=== PATIENT | female | born 1955 | race Caucasian/White ===

== ENCOUNTER → 2017-04-23 | Outpatient (CLI) | payer BC ==
[2017-04-23 07:38] LABS: MEAN CORPUSCULAR HEMOGLOBIN 27.4 pg (27.0-33.0); MEAN CORPUSCULAR HGB CONC 32.6 g/dl (32.0-36.5); MEAN CORPUSCULAR VOLUME 83.9 fl (80.0-96.0); RED CELL DISTRIBUTION WIDTH 14.6 % (11.5-14.5); RETIC HEMOGLOBIN CONTENT CHr 29.9 PG (24-36); RETICULOCYTE % 1.8 % (0.5-1.5); WHITE BLOOD COUNT 2.9 K/mm3 (4.0-10.0)
[2017-04-23 07:53] LABS: ALBUMIN 3.2 GM/DL (3.2-5.2); ALBUMIN/GLOBULIN RATIO 1.03 (1.00-1.93); ALKALINE PHOSPHATASE 71 U/L (45-117); ALT/SGPT 36 U/L (12-78); ANION GAP 8 MEQ/L (8-16); AST/SGOT 38 U/L (15-37); BILIRUBIN,TOTAL 0.4 MG/DL (0.2-1.0); BLOOD UREA NITROGEN 9 MG/DL (7-18); CALCIUM LEVEL 8.6 MG/DL (8.8-10.2); CARBON DIOXIDE LEVEL 28 MEQ/L (21-32); CHLORIDE LEVEL 108 MEQ/L (98-107); CHOLESTEROL LEVEL 166 MG/DL (<200); CREATININE FOR GFR 0.67 MG/DL (0.55-1.02); FERRITIN 8 NG/ML (8-252); GLOMERULAR FILTRATION RATE > 60.0 (>45); GLUCOSE, FASTING 82 MG/DL (80-110); PERCENT SATURATION 8.7 % (13.2-45.0); POTASSIUM SERUM 4.2 MEQ/L (3.5-5.1); SODIUM LEVEL 144 MEQ/L (136-145); TOTAL IRON BINDING CAPACITY 415 UG/DL (250-450); TOTAL PROTEIN 6.3 GM/DL (6.4-8.2); TRIGLYCERIDES LEVEL 74 MG/DL (<150)
[2017-04-23 09:35] LABS: FOLATE 19.5 NG/ML (>5.4); VITAMIN B12 LEVEL 293 PG/ML (247-911)
== END ==
LOC: M LAB 06:42
PROVIDERS: ATTEND Nurse Practitioner Family
DX: K52.9 Noninfective gastroenteritis and colitis, unspecified (principal); E03.9 Hypothyroidism, unspecified; D50.9 Iron deficiency anemia, unspecified; I10 Essential (primary) hypertension

== ENCOUNTER 2017-05-08 15:53 | Outpatient (RCR) | payer BC | END 2017-05-11 | LOC: M PT 15:53 | PROVIDERS: ATTEND Physician Assistant Surgical | DX: Z51.89 Encounter for other specified aftercare (principal); M22.2X2 Patellofemoral disorders, left knee; M22.2X1 Patellofemoral disorders, right knee ==

== ENCOUNTER → 2017-05-23 | Outpatient (REF) | payer BC | LOC: M LAB REF 12:23 | PROVIDERS: ATTEND Internal Medicine Medical Oncology | DX: C21.0 Malignant neoplasm of anus, unspecified (principal) ==

== ENCOUNTER → 2017-07-30 | Day surgery (SDC) | payer BC ==
[~2017-07-30] VITALS: Ht 165.1 cm; Wt 107.5 kg
[~2017-07-30] MED LIST: IRON65TA PO; LEVO112T2; LR 1,000 ML IV ONE; MELO7.5T7 PO; VITA1CAP40; VITA500T PO; ZYRT10TA2 PO
--- NOTE | 2017-07-30 10:06 | ROOR ---
Patient Name: Anca Cates Procedure Date: 07/30/2017 9:24 AM Date of : 1955 Age: 62 Room: [facility] Gender: Female Note Status: Finalized Procedure: Colonoscopy Indications: High risk colon cancer surveillance: Personal history of colonic polyps, High risk colon cancer surveillance: Personal history of anal cancer, Last colonoscopy: September 2014 Providers: Esa Gillis MD Referring MD: WALE MCDANIEL MD Requesting Provider: Medicines: Monitored Anesthesia Care Complications: No immediate complications. Procedure: Pre-Anesthesia Assessment: - Prior to the procedure, a History and Physical was performed, and patient medications and allergies were reviewed. The patient is competent. The risks and benefits of the procedure and the sedation options and risks were discussed with the patient. All questions were answered and informed consent was obtained. Patient identification and proposed procedure were verified by the physician, the nurse and the special needs babysitter in the procedure room. Mental Status Examination: alert and oriented. Airway Examination: normal oropharyngeal airway and neck mobility. CV Examination: regular rate and rhythm. Prophylactic Antibiotics: The patient does not require prophylactic antibiotics. Prior Anticoagulants: The patient has taken no previous anticoagulant or antiplatelet agents. ASA Grade Assessment: III - A patient with severe systemic disease. After reviewing the risks and benefits, the patient was deemed in satisfactory condition to undergo the procedure. The anesthesia plan was to use monitored anesthesia care (MAC). Immediately prior to administration of medications, the patient was re-assessed for adequacy to receive sedatives. The heart rate, respiratory rate, oxygen saturations, blood pressure, adequacy of pulmonary ventilation, and response to care were monitored throughout the procedure. The physical status of the patient was re-assessed after the procedure. The was introduced through the anus and advanced to the cecum, identified by appendiceal orifice and ileocecal valve. The colonoscopy was performed without difficulty. The patient tolerated the procedure well. The quality of the bowel preparation was good. Findings: The digital rectal exam findings include anal stricture which is mild. Pertinent negatives include no palpable rectal lesions. A 5 mm polyp was found in the hepatic flexure. The polyp was sessile. The polyp was removed with a cold snare. Resection and retrieval were complete. Estimated blood loss was minimal. An area of moderately congested mucosa was found in the rectum. This involved the rectum diffusely. Impression: - Anal stricture found on digital rectal exam. - One 5 mm polyp at the hepatic flexure, removed with a cold snare. Resected and retrieved. - Congested mucosa in the rectum. Recommendation: - Discharge patient to home. - Resume previous diet. - Continue present medications. - Await pathology results. - Telephone endoscopist for pathology results in 1 week. - Repeat colonoscopy in 3 years for surveillance. Esa Gillis MD 07/30/2017 10:06:18 AM Number of Addenda: 0 Note Initiated On: 07/30/2017 9:24 AM Estimated Blood Loss: Estimated blood loss was minimal.
[2017-07-30 10:25] VITALS: BP 172/75
== END | disposition home or self-care (01) ==
LOC: M OPP 08:01
PROVIDERS: ATTEND Surgery
DX: Z12.11 Encounter for screening for malignant neoplasm of colon (principal); Z85.048 Personal history of other malignant neoplasm of rectum, rectosigmoid junction, and anus; Z86.010 Personal history of colon polyps; D12.3 Benign neoplasm of transverse colon; K62.89 Other specified diseases of anus and rectum; K62.4 Stenosis of anus and rectum; E03.9 Hypothyroidism, unspecified; D64.9 Anemia, unspecified; G43.909 Migraine, unspecified, not intractable, without status migrainosus; Z78.0 Asymptomatic menopausal state; E66.9 Obesity, unspecified; Z92.3 Personal history of irradiation; Z92.21 Personal history of antineoplastic chemotherapy; Z98.84 Bariatric surgery status; Z79.899 Other long term (current) drug therapy; Z88.8 Allergy status to other drugs, medicaments and biological substances

== ENCOUNTER → 2017-10-09 | Outpatient (CLI) | payer BC | LOC: M RAD 11:06 | DX: R10.9 Unspecified abdominal pain (principal) | CPT/HCPCS: 74181 ==

== ENCOUNTER → 2017-10-17 | Outpatient (CLI) | payer BC | LOC: M RAD 11:34 | DX: G44.89 Other headache syndrome (principal) ==

== ENCOUNTER → 2018-02-13 | Outpatient (CLI) | payer BC ==
[2018-02-13 07:25] LABS: HEMATOCRIT 39.3 % (36.0-47.0); HEMOGLOBIN 13.4 g/dl (12.0-15.5); MEAN CORPUSCULAR HEMOGLOBIN 30.2 pg (27.0-33.0); MEAN CORPUSCULAR HGB CONC 34.1 g/dl (32.0-36.5); MEAN CORPUSCULAR VOLUME 88.5 fl (80.0-96.0); PLATELET COUNT, AUTOMATED 257 10^3/uL (150-450); RED BLOOD COUNT 4.44 10^6/uL (4.00-5.40); RED CELL DISTRIBUTION WIDTH 12.8 % (11.5-14.5); RETICULOCYTE # 52.4 10^9/L (17-77); RETICULOCYTE % 1.2 % (0.5-1.5); WHITE BLOOD COUNT 3.9 10^3/uL (4.0-10.0)
[2018-02-13 07:59] LABS: ALBUMIN 3.3 GM/DL (3.2-5.2); ALBUMIN/GLOBULIN RATIO 0.94 (1.00-1.93); ALKALINE PHOSPHATASE 73 U/L (45-117); ALT/SGPT 30 U/L (12-78); ANION GAP 9 MEQ/L (8-16); AST/SGOT 22 U/L (7-37); BILIRUBIN,TOTAL 0.4 MG/DL (0.2-1.0); BLOOD UREA NITROGEN 15 MG/DL (7-18); CALCIUM LEVEL 8.2 MG/DL (8.8-10.2); CARBON DIOXIDE LEVEL 27 MEQ/L (21-32); CHLORIDE LEVEL 107 MEQ/L (98-107); CREATININE FOR GFR 0.66 MG/DL (0.55-1.30); FERRITIN 22 NG/ML (8-252); GLOMERULAR FILTRATION RATE > 60.0 (>45); GLUCOSE, FASTING 82 MG/DL (70-100); IRON (FE) 74 UG/DL (50-170); PERCENT SATURATION 19.5 % (13.2-45.0); POTASSIUM SERUM 4.1 MEQ/L (3.5-5.1); SODIUM LEVEL 143 MEQ/L (136-145); TOTAL IRON BINDING CAPACITY 379 UG/DL (250-450); TOTAL PROTEIN 6.8 GM/DL (6.4-8.2)
[2018-02-13 10:11] LABS: TOTAL 25(OH) VITAMIN D 106.2 NG/ML (30.0-100.0); VITAMIN B12 LEVEL > 2000 PG/ML
[2018-02-13 10:13] LABS: FOLATE 15.6 NG/ML
== END ==
LOC: M LAB 06:56
DX: E03.9 Hypothyroidism, unspecified (principal)
CPT/HCPCS: 82746

== ENCOUNTER → 2018-02-18 | Outpatient (CLI) | payer BC | LOC: M RAD 06:35 | DX: G45.9 Transient cerebral ischemic attack, unspecified (principal) | CPT/HCPCS: 70551 ==

== ENCOUNTER 2020-03-10 07:15 | Day surgery (SDC) | payer MEDICARE ==
[~2020-03-10] VITALS: Ht 165.1 cm; Wt 102.1 kg
[~2020-03-10 07:15] MED LIST changes: +ALLE10TA62 PO; +IRON325T2 PO; +LIDOCAINE 2% 100MG/5ML SDV (FOR ANES.) As Ordered ONE; -LR 1,000 ML IV ONE; +POTA10808 PO; +VITA-243 PO; -VITA1CAP40; +VITA50005; +VITA500C24 PO; -VITA500T PO; +ZYRT10CA5 PO; -ZYRT10TA2 PO; +propofoL 200 MG/20 ML VIAL As Ordered ONE
[2020-03-10] MEDS ORDERED: fentaNYL 100 MCG/2 ML INJECTION (J3010) As Ordered ONE (07:47)
[2020-03-10] MEDS ORDERED: propofoL 200 MG/20 ML VIAL As Ordered ONE (09:04)
--- NOTE | 2020-04-20 11:26 | ROOR ---
Patient Name: Anca Cates Procedure Date: 03/10/2020 8:33 AM Date of : 1955 Age: 64 Room: [facility] Gender: Female Note Status: Spine Nurse Override Procedure: Colonoscopy Indications: Last colonoscopy: July 2017, Iron deficiency anemia, Past treatment for anal cancer. Providers: Esa Gillis MD Referring MD: Annabella YEUNG DO Requesting Provider: Medicines: Monitored Anesthesia Care Complications: No immediate complications. Procedure: Pre-Anesthesia Assessment: - Prior to the procedure, a History and Physical was performed, and patient medications and allergies were reviewed. The patient is competent. The risks and benefits of the procedure and the sedation options and risks were discussed with the patient. All questions were answered and informed consent was obtained. Patient identification and proposed procedure were verified by the physician, the nurse and the anesthesiologist in the procedure room. Mental Status Examination: alert and oriented. Prophylactic Antibiotics: The patient does not require prophylactic antibiotics. Prior Anticoagulants: The patient has taken no previous anticoagulant or antiplatelet agents. ASA Grade Assessment: II - A patient with mild systemic disease. After reviewing the risks and benefits, the patient was deemed in satisfactory condition to undergo the procedure. The anesthesia plan was to use monitored anesthesia care (MAC). Immediately prior to administration of medications, the patient was re-assessed for adequacy to receive sedatives. The heart rate, respiratory rate, oxygen saturations, blood pressure, adequacy of pulmonary ventilation, and response to care were monitored throughout the procedure. The physical status of the patient was re-assessed after the procedure. The Colonoscope was introduced through the anus and advanced to the cecum, identified by appendiceal orifice and ileocecal valve. The colonoscopy was performed without difficulty. The patient tolerated the procedure well. The quality of the bowel preparation was good. Findings: The perianal exam findings include changes consistent with prior anal cancer. Five sessile polyps were found in the proximal transverse colon, hepatic flexure and ascending colon. The polyps were 3 to 5 mm in size. These polyps were removed with a cold snare. Resection and retrieval were complete. Estimated blood loss was minimal. Two sessile polyps were found in the splenic flexure and transverse colon. The polyps were diminutive in size. Multiple medium-mouthed diverticula were found in the sigmoid colon. A diffuse area of moderately congested, erythematous and muiuaaxd-yqktvol-wtfkcvqap mucosa was found in the rectum. This was consistent with patient's prior radiation therapy. Impression: - Changes consistent with prior anal cancer. found on perianal exam. - Five 3 to 5 mm polyps in the proximal transverse colon, at the hepatic flexure and in the ascending colon, removed with a cold snare. Resected and retrieved. - Two diminutive polyps at the splenic flexure and in the transverse colon. - Diverticulosis in the sigmoid colon. - Congested, erythematous and vfadypib-vpysaaa-hpznmlsnd mucosa in the rectum. Recommendation: - Discharge patient to home. - Resume previous diet. - Continue present medications. - Await pathology results. Esa Gillis MD Esa Gillis MD 03/10/2020 9:43:36 AM Number of Addenda: 0 Note Initiated On: 03/10/2020 8:33 AM Estimated Blood Loss: Estimated blood loss was minimal.
--- NOTE | 2020-04-20 11:26 | ROOR ---
Patient Name: Anca Cates Procedure Date: 03/10/2020 8:32 AM Date of : 1955 Age: 64 Room: [facility] Gender: Female Note Status: Prepper Override Procedure: Upper GI endoscopy Indications: Iron deficiency anemia, Status post gastric bypass Providers: Esa Gillis MD Referring MD: WALE MCDANIEL MD Requesting Provider: Medicines: Monitored Anesthesia Care Complications: No immediate complications. Procedure: Pre-Anesthesia Assessment: - Prior to the procedure, a History and Physical was performed, and patient medications and allergies were reviewed. The patient is competent. The risks and benefits of the procedure and the sedation options and risks were discussed with the patient. All questions were answered and informed consent was obtained. Patient identification and proposed procedure were verified by the physician, the nurse and the anesthesiologist in the procedure room. Mental Status Examination: alert and oriented. Prophylactic Antibiotics: The patient does not require prophylactic antibiotics. Prior Anticoagulants: The patient has taken no previous anticoagulant or antiplatelet agents. ASA Grade Assessment: II - A patient with mild systemic disease. After reviewing the risks and benefits, the patient was deemed in satisfactory condition to undergo the procedure. The anesthesia plan was to use monitored anesthesia care (MAC). Immediately prior to administration of medications, the patient was re-assessed for adequacy to receive sedatives. The heart rate, respiratory rate, oxygen saturations, blood pressure, adequacy of pulmonary ventilation, and response to care were monitored throughout the procedure. The physical status of the patient was re-assessed after the procedure. The Endoscope was introduced through the mouth, and advanced to the afferent and efferent jejunal loops. The upper GI endoscopy was accomplished without difficulty. The patient tolerated the procedure well. Findings: The examined esophagus was normal. Evidence of a gastric bypass was found. A gastric pouch was found. The gastrojejunal anastomosis was characterized by healthy appearing mucosa. This was traversed. The wyzjw-qi-dqblixy limb was characterized by healthy appearing mucosa. The dwdzqipr-qo-knperef limb was not examined as it could not be reached. Afferent limb was approx 15 cm and appeared healthy. Normal mucosa was found in the jejunum. Impression: - Normal esophagus. - Gastric bypass. Gastrojejunal anastomosis characterized by healthy appearing mucosa. - Normal mucosa was found in the jejunum. - No specimens collected. Recommendation: - Discharge patient to home. - Resume previous diet. - Continue present medications. Esa Gillis MD Esa Gillis MD 03/10/2020 9:54:02 AM Number of Addenda: 0 Note Initiated On: 03/10/2020 8:32 AM Estimated Blood Loss: Estimated blood loss: none.
== END 2020-03-10 10:15 | disposition home or self-care (01) ==
LOC: M OPP 07:15
PROVIDERS: ATTEND Surgery
DX: K63.5 Polyp of colon (principal); K62.89 Other specified diseases of anus and rectum; K57.30 Diverticulosis of large intestine without perforation or abscess without bleeding; D50.9 Iron deficiency anemia, unspecified; Z98.84 Bariatric surgery status; Z79.899 Other long term (current) drug therapy; Z85.048 Personal history of other malignant neoplasm of rectum, rectosigmoid junction, and anus
CPT/HCPCS: 43235; 45385; 88305; J3010

== ENCOUNTER → 2020-05-19 | Outpatient (CLI) | payer MEDICARE ==
[~2020-05-19] MED LIST changes: +GASTROGRAFIN SOLUTION 30ML (Q9963) As Ordered ONE; +ISOVUE-370 76% 100ML VIAL As Ordered ONE; -LIDOCAINE 2% 100MG/5ML SDV (FOR ANES.) As Ordered ONE; -propofoL 200 MG/20 ML VIAL As Ordered ONE
--- NOTE | 2020-05-24 10:08 | REP ---
CT STUDY OF THE ABDOMEN AND PELVIS WITH INTRAVENOUS (IV) AND ORAL CONTRAST HISTORY: Lower abdominal pain. 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 COMPARISON CT STUDY: 06/25/2014. COMPARISON ABDOMINAL MRI STUDY: 10/09/2017. CT CONTRAST DOSE: 100 mL of intravenous Isovue-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 There is a moderate amount of stool in the right and left colon. There are surgical clips in the left mid abdomen. Lung bases shows granulomatous calcifications in the left base, but are otherwise clear. No pleural effusion or upper abdominal ascites. The gallbladder is surgically absent and the patient is status post gastric bypass. There is minimal diffuse fatty infiltration of the liver. No focal liver lesion is seen. The spleen is normal in size and homogeneous in texture. There is a tiny accessory splenule inferiorly. The kidneys enhance symmetrically and are morphologically intact. No abnormality is noted in the pancreas. The common bile duct is normal post cholecystectomy. No periaortic mass or adenopathy is seen. Normal caliber aorta is noted. A normal appendix is seen. The cecum is somewhat horizontally oriented with moderate orally ingested contrast. There is formed stool throughout the left colon. No obstructive lesion is seen. There is circumferential thickening around the lower rectum with some left perirectal soft tissue. This is apparently fibrosis and/or postoperative change since it is completely unchanged from the 06/30/2014 prior study. No uterine or adnexal pathology is appreciated. No pelvic mass or adenopathy is seen. Small bowel loops are unremarkable. Bone window settings demonstrate fairly advanced degenerative disc disease at L5-S1 and L4-5 and facet osteoarthritic hypertrophy in the lumbar spine. No bony destructive lesion. IMPRESSION: Postoperative changes. Moderate left colonic stool. Stable area of fibrosis left perirectal soft tissues. No acute abdominal or pelvic abnormality. MTDD
== END ==
LOC: M RAD 15:00
PROVIDERS: ATTEND Internal Medicine Hematology & Oncology
DX: R10.30 Lower abdominal pain, unspecified (principal); Z85.048 Personal history of other malignant neoplasm of rectum, rectosigmoid junction, and anus; R91.8 Other nonspecific abnormal finding of lung field; Z90.49 Acquired absence of other specified parts of digestive tract; Z98.84 Bariatric surgery status
CPT/HCPCS: 74177; Q9963; Q9967

== ENCOUNTER 2022-01-26 09:03 | Emergency (ER) | payer MEDICARE ==
[~2022-01-26] VITALS: Ht 162.6 cm; Wt 117.4 kg
[~2022-01-26 09:03] MED LIST changes: -GASTROGRAFIN SOLUTION 30ML (Q9963) As Ordered ONE; -ISOVUE-370 76% 100ML VIAL As Ordered ONE; +META0.52 PO; +MIRA3350 PO
[2022-01-26] MEDS ORDERED: ISOVUE-370 76% 100ML VIAL As Ordered ONE (09:13)
[2022-01-26] MEDS ORDERED: METOCLOPRAMIDE INJ 10MG/2ML VIAL (J2765 PER 1) IV ONE (09:20)
[2022-01-26 09:28] LABS: BASO % 0.6 % (0.0-1.0); EOS # 0.1 10^3/uL (0.0-0.5); EOS % 1.5 % (0.0-3.0); HEMATOCRIT 43.9 % (36.0-47.0); HEMOGLOBIN 14.7 g/dl (12.0-15.5); LYMPH # 1.1 10^3/uL (1.5-5.0); LYMPH % 15.9 % (24.0-44.0); MEAN CORPUSCULAR HEMOGLOBIN 30.8 pg (27.0-33.0); MEAN CORPUSCULAR HGB CONC 33.5 g/dl (32.0-36.5); MONO # 0.4 10^3/uL (0.0-0.8); MONO % 5.8 % (2.0-8.0); NEUTROPHILS # 5.4 10^3/uL (1.5-8.5); NEUTROPHILS % 75.6 % (36.0-66.0); PLATELET COUNT, AUTOMATED 286 10^3/uL (150-450); RED BLOOD COUNT 4.77 10^6/uL (4.00-5.40); WHITE BLOOD COUNT 7.1 10^3/uL (4.0-10.0)
[2022-01-26 09:37] LABS: INR 0.95; PROTHROMBIN TIME 13.1 SECONDS (12.7-14.5)
[2022-01-26 09:38] LABS: PARTIAL THROMBOPLASTIN TIME 33.6 SECONDS (25.9-37.0)
[2022-01-26 10:08] LABS: CK-MB VALUE MASS < 1.0 NG/ML (<3.6); CPK CREATINE PHOSPHOKINASE 393 U/L (26-192); MB/CK RELATIVE INDEX 0.25 (< OR =4)
[2022-01-26 10:20] LABS: RSV AMPLIFICATION NEGATIVE (NEGATIVE)
[2022-01-26] MEDS ORDERED: REGL10TA6 PO (12:43)
[2022-01-26 13:03] VITALS: BP 145/60
== END 2022-01-26 13:16 | disposition home or self-care (01) ==
LOC: M ED 09:03
DX: G43.809 Other migraine, not intractable, without status migrainosus (principal); I10 Essential (primary) hypertension; I45.10 Unspecified right bundle-branch block; I44.4 Left anterior fascicular block; Z88.4 Allergy status to anesthetic agent; Z79.899 Other long term (current) drug therapy
CPT/HCPCS: 70450; 70496; 70498; 70551; 71045; 80047; 82550; 82553; 84484; 85025; 85610; 85730; 87631; 93005; 93041; 94760; 96374; 99285; J2765; Q9967

== ENCOUNTER → 2022-12-27 | Outpatient (CLI) | payer MEDICARE ==
[~2022-12-27] MED LIST changes: +HYDR-3490; +LISI20TA33; +REGL10TA6 PO; +XALA0.007
== END ==
LOC: M WHC 14:34
PROVIDERS: ATTEND Nurse Practitioner
DX: Z12.31 Encounter for screening mammogram for malignant neoplasm of breast (principal); Z85.038 Personal history of other malignant neoplasm of large intestine

== ENCOUNTER → 2023-01-01 | Outpatient (REF) | payer MEDICARE | LOC: M LAB REF 17:47 | PROVIDERS: ATTEND Physician Assistant Medical | DX: R19.7 Diarrhea, unspecified (principal) ==

== ENCOUNTER 2023-02-14 06:57 | Day surgery (SDC) | payer MEDICARE ==
[~2023-02-14] VITALS: Ht 162.6 cm; Wt 107.8 kg
[~2023-02-14 06:57] MED LIST changes: +HYDR12.55 PO; -LEVO112T2; +LEVO112T2 PO; +LISI10TA22 PO; +NS 1,000 ML IV ONE; -XALA0.007; +XALA0.007 OU
[2023-02-14] MEDS ORDERED: propofoL 200 MG/20 ML VIAL As Ordered ONE ×2 (07:42→08:24)
[2023-02-14 08:37] VITALS: TEMP 96.9
[2023-02-14 08:51] VITALS: BP 114/58; O2SAT 96
== END 2023-02-14 09:08 | disposition home or self-care (01) ==
LOC: M OPP 06:57
PROVIDERS: ATTEND Internal Medicine Gastroenterology
DX: Z86.010 Personal history of colon polyps (principal); Z85.048 Personal history of other malignant neoplasm of rectum, rectosigmoid junction, and anus; D12.2 Benign neoplasm of ascending colon; D12.3 Benign neoplasm of transverse colon; K57.30 Diverticulosis of large intestine without perforation or abscess without bleeding; K62.4 Stenosis of anus and rectum; Z79.1 Long term (current) use of non-steroidal anti-inflammatories (NSAID); Z79.890 Hormone replacement therapy; Z79.899 Other long term (current) drug therapy; Z88.4 Allergy status to anesthetic agent

== ENCOUNTER → 2024-03-11 | Outpatient (CLI) | payer MEDICARE ==
[~2024-03-11] MED LIST changes: +LOSA25TA13 PO; -NS 1,000 ML IV ONE
== END ==
LOC: M WHC 07:24
PROVIDERS: ATTEND Family Medicine
DX: Z13.820 Encounter for screening for osteoporosis (principal); M85.851 Other specified disorders of bone density and structure, right thigh

== ENCOUNTER 2024-03-25 19:04 | Emergency (ER) | payer MEDICARE ==
[~2024-03-25] VITALS: Ht 162.6 cm; Wt 107.9 kg
[2024-03-25 22:42] VITALS: BP 134/68; TEMP 97; O2SAT 98
[2024-03-25] MEDS ORDERED: CEPH500C PO (22:46)
[2024-03-25] MEDS ORDERED: IBUP-1022 PO (22:48)
[2024-03-25] MEDS: CEPHALEXIN 500 MG CAP PO ONE (23:05)
== END 2024-03-25 23:14 | disposition home or self-care (01) ==
LOC: M ED 19:04
DX: L03.032 Cellulitis of left toe (principal); I10 Essential (primary) hypertension; Z88.8 Allergy status to other drugs, medicaments and biological substances; Z79.2 Long term (current) use of antibiotics; Z79.811 Long term (current) use of aromatase inhibitors; Z79.899 Other long term (current) drug therapy

== ENCOUNTER → 2024-04-07 | Outpatient (REF) ==
[~2024-04-07] MED LIST changes: +CEPH500C PO; +IBUP-1022 PO
== END ==
LOC: M EMP 14:29
PROVIDERS: ATTEND Family Medicine
DX: Z11.52 Encounter for screening for COVID-19 (principal); U07.1 COVID-19

== ENCOUNTER 2024-06-02 07:18 | Emergency (ER) | payer MEDICARE ==
[~2024-06-02] VITALS: Ht 162.6 cm; Wt 111.9 kg
[2024-06-02] MEDS ORDERED: TERB250T91 (07:32)
[2024-06-02] MEDS: predniSONE 20 MG TAB PO ONE (08:22)
[2024-06-02 09:11] VITALS: BP 119/58; TEMP 97.3; O2SAT 98
== END 2024-06-02 09:17 | disposition home or self-care (01) ==
LOC: M ED 07:18
DX: T78.40XA Allergy, unspecified, initial encounter (principal); I10 Essential (primary) hypertension; R51.9 Headache, unspecified; E03.9 Hypothyroidism, unspecified; D50.9 Iron deficiency anemia, unspecified; Z91.048 Other nonmedicinal substance allergy status; Z79.811 Long term (current) use of aromatase inhibitors; Z79.899 Other long term (current) drug therapy
CPT/HCPCS: 99283; J7512